=== PATIENT | female | born 1985 | race Caucasian/White ===

== ENCOUNTER 2017-12-07 18:22 | Emergency (ER) | payer BC ==
[~2017-12-07] VITALS: Ht 170.2 cm; Wt 92.3 kg
[2017-12-07 18:49] VITALS: Ht 170.2 cm; Wt 92.3 kg
[2017-12-07 21:58] VITALS: BP 140/78
== END 2017-12-07 21:58 | disposition left against medical advice (07) ==
LOC: ED 18:22
DX: S13.4XXA Sprain of ligaments of cervical spine, initial encounter (principal); E11.9 Type 2 diabetes mellitus without complications; V43.52XA Car driver injured in collision with other type car in traffic accident, initial encounter; Y93.I9 Activity, other involving external motion; Y92.89 Other specified places as the place of occurrence of the external cause; Y99.8 Other external cause status